=== PATIENT | female | born 1990 | race African-American/Black ===

== ENCOUNTER 2019-08-16 17:12 | Emergency (ER) | payer MEDICAID ==
[~2019-08-16] VITALS: Ht 170.2 cm; Wt 91.0 kg
[2019-08-16 17:19] VITALS: BP 145/92
[2019-08-16] MEDS ORDERED: VISCOUS LIDOCAINE 2% 15 ML UDC PO ONE (18:45)
[2019-08-16] MEDS ORDERED: MAGNESIUM/ALUMINUM HYDROXIDE/SIMETHICONE 30ML UDC PO ONE (18:45)
== END 2019-08-16 18:20 | disposition left against medical advice (07) ==
LOC: ER 17:12
DX: R51 Headache (principal); Z53.21 Procedure and treatment not carried out due to patient leaving prior to being seen by health care provider